=== PATIENT | male | born 1960 | race Native Hawaiian/Other Pacific Islander ===

== ENCOUNTER 2016-12-25 08:04 | Outpatient (CLI) | payer OTHER ==
[~2016-12-25 08:04] MED LIST: CLON0.5T36 PO; FLUV100T PO; GRALISE600 MG OR; LIPITOR20 MG PO; QUET200T28 PO; WARFARIN5 MG PO
== END 2016-12-25 20:05 | disposition home or self-care (01) ==
LOC: LABW 08:04
PROVIDERS: Internal Medicine
DX: D68.8 Other specified coagulation defects (principal); E78.00 Pure hypercholesterolemia, unspecified; Z79.899 Other long term (current) drug therapy; Z51.81 Encounter for therapeutic drug level monitoring
CPT/HCPCS: 36415; 80061; 80076; 82550; 85610

== ENCOUNTER 2017-02-02 09:12 | Outpatient (CLI) | payer OTHER | END 2017-02-02 10:12 | disposition home or self-care (01) | LOC: LABW 09:12 | DX: D68.8 Other specified coagulation defects (principal) | CPT/HCPCS: 36415; 85610 ==

== ENCOUNTER 2017-03-16 11:42 | Outpatient (CLI) | payer OTHER | END 2017-03-16 19:11 | disposition home or self-care (01) | LOC: LABW 11:42 | DX: D68.9 Coagulation defect, unspecified (principal) | CPT/HCPCS: 36415; 85610 ==

== ENCOUNTER 2017-04-30 10:16 | Outpatient (CLI) | payer OTHER | END 2017-04-30 11:20 | disposition home or self-care (01) | LOC: LABW 10:16 | DX: D68.8 Other specified coagulation defects (principal) | CPT/HCPCS: 36415; 85610 ==

== ENCOUNTER 2017-06-04 08:55 | Outpatient (CLI) | payer OTHER | END 2017-06-04 09:55 | disposition home or self-care (01) | LOC: LABW 08:55 | DX: D68.8 Other specified coagulation defects (principal) | CPT/HCPCS: 36415; 85610 ==

== ENCOUNTER 2017-07-26 11:45 | Outpatient (CLI) | payer OTHER | END 2017-07-26 12:45 | disposition home or self-care (01) | LOC: LABW 11:45 | DX: D68.8 Other specified coagulation defects (principal) | CPT/HCPCS: 36415; 85610 ==

== ENCOUNTER 2017-09-26 10:23 | Outpatient (CLI) | payer OTHER | END 2017-09-26 18:58 | disposition home or self-care (01) | LOC: LABW 10:23 | DX: D68.8 Other specified coagulation defects (principal) | CPT/HCPCS: 36415; 85610 ==

== ENCOUNTER 2017-10-22 08:30 | Outpatient (CLI) | payer OTHER ==
[2017-10-22 09:11] LABS: PLATELET COUNT 187 K/uL (142-355)
[2017-10-22 09:37] LABS: SODIUM 132 mmol/L (136-145)
== END 2017-10-22 09:30 | disposition home or self-care (01) ==
LOC: LABW 08:30
PROVIDERS: Internal Medicine
DX: E11.9 Type 2 diabetes mellitus without complications (principal); D68.8 Other specified coagulation defects; Z12.5 Encounter for screening for malignant neoplasm of prostate
CPT/HCPCS: 36415; 80053; 80061; 81000; 82043; 82570; 83036; 84153; 84443; 85027; 85610

== ENCOUNTER 2017-11-28 10:48 | Outpatient (CLI) | payer OTHER | END 2017-11-28 19:39 | disposition home or self-care (01) | LOC: LABW 10:48 | DX: D68.8 Other specified coagulation defects (principal) | CPT/HCPCS: 36415; 85610 ==

== ENCOUNTER 2018-01-10 10:52 | Outpatient (CLI) | payer OTHER | END 2018-01-10 23:58 | disposition home or self-care (01) | LOC: LABW 10:52 | DX: D68.8 Other specified coagulation defects (principal) | CPT/HCPCS: 36415; 85610 ==

== ENCOUNTER 2018-02-12 10:11 | Outpatient (CLI) | payer OTHER | END 2018-02-12 22:55 | disposition home or self-care (01) | LOC: LABW 10:11 | DX: D68.8 Other specified coagulation defects (principal) | CPT/HCPCS: 36415; 85610 ==

== ENCOUNTER 2018-02-17 14:15 | Emergency (ER) | payer OTHER ==
[~2018-02-17] VITALS: Ht 182.9 cm; Wt 90.7 kg
[2018-02-17 15:01] LABS: PLATELET COUNT 199 K/uL (142-355)
[2018-02-17] MEDS ORDERED: WARF5TAB6 PO (15:01)
[2018-02-17] MEDS ORDERED: NEURONTIN800 MG PO (15:01)
[2018-02-17] MEDS ORDERED: TRAM50TA PO (15:02)
[2018-02-17] MEDS ORDERED: SEROQUEL300 MG OR (15:03)
[2018-02-17] MEDS ORDERED: LEVO0.0529 PO (15:04)
[2018-02-17] MEDS ORDERED: LIPITOR40 MG PO (15:04)
[2018-02-17 15:07] LABS: POTASSIUM 3.9 mmol/L (3.6-5.2)
[2018-02-17] MEDS ORDERED: FLUV100T PO (15:10)
[2018-02-17] MEDS ORDERED: METF100038 OR (15:11)
[2018-02-17] MEDS ORDERED: LAMICTAL200 MG (15:12)
[2018-02-17 15:50] LABS: PARTIAL THROMBOPLASTIN TIME 74.8 SECONDS (24.5-33.6)
[2018-02-17 17:25] VITALS: BP 140/89; TEMP 102.8
== END 2018-02-17 17:27 | disposition short-term general hospital (02) ==
LOC: ED 14:15
DX: J18.9 Pneumonia, unspecified organism (principal); N19 Unspecified kidney failure; R00.0 Tachycardia, unspecified
CPT/HCPCS: 36600; 80053; 82550; 82805; 84484; 85027; 85379; 85610; 85730; 93005; 96372; 96374; 99284; J1650; J2060

== ENCOUNTER 2018-02-17 17:05 | Outpatient (CLI) | payer OTHER ==
[~2018-02-17 17:05] MED LIST changes: +LAMICTAL200 MG; +LEVO0.0529 PO; +LIPITOR40 MG PO; +METF100038 OR; +NEURONTIN800 MG PO; +SEROQUEL300 MG OR; +TRAM50TA PO; +WARF5TAB6 PO
== END 2018-02-17 17:26 | disposition short-term general hospital (02) ==
LOC: AMB 17:05
DX: J18.9 Pneumonia, unspecified organism (principal); N19 Unspecified kidney failure; R00.0 Tachycardia, unspecified
CPT/HCPCS: A0425; A0429

== ENCOUNTER 2018-03-15 12:37 | Outpatient (CLI) | payer OTHER ==
[2018-03-15 13:39] LABS: POTASSIUM 4.2 mmol/L (3.6-5.2)
[2018-03-15 14:00] LABS: PLATELET COUNT 299 K/uL (142-355)
== END 2018-03-15 19:17 | disposition home or self-care (01) ==
LOC: LABW 12:37
PROVIDERS: Internal Medicine
DX: D64.89 Other specified anemias (principal); I35.0 Nonrheumatic aortic (valve) stenosis; G72.89 Other specified myopathies
CPT/HCPCS: 36415; 80053; 83735; 84443; 85027; 85610

== ENCOUNTER 2018-03-22 09:36 | Outpatient (CLI) | payer OTHER ==
[2018-03-22 10:28] LABS: PLATELET COUNT 242 K/uL (142-355)
== END 2018-03-22 22:14 | disposition home or self-care (01) ==
LOC: LABW 09:36
PROVIDERS: Internal Medicine
DX: D64.89 Other specified anemias (principal)
CPT/HCPCS: 36415; 85027; 85044

== ENCOUNTER 2018-04-05 09:09 | Outpatient (CLI) | payer OTHER ==
[2018-04-05 09:26] LABS: PLATELET COUNT 232 K/uL (142-355)
== END 2018-04-05 22:36 | disposition home or self-care (01) ==
LOC: LABW 09:09
PROVIDERS: Internal Medicine
DX: I10 Essential (primary) hypertension (principal); D68.8 Other specified coagulation defects
CPT/HCPCS: 36415; 85027; 85044

== ENCOUNTER 2018-04-11 10:15 | Outpatient (CLI) | payer OTHER | END 2018-04-11 19:10 | disposition home or self-care (01) | LOC: LABW 10:15 | PROVIDERS: Internal Medicine | DX: I10 Essential (primary) hypertension (principal); D68.8 Other specified coagulation defects | CPT/HCPCS: 36415; 80061; 85610 ==

== ENCOUNTER 2018-04-24 11:56 | Outpatient (CLI) | payer OTHER ==
[2018-04-24 12:22] LABS: PLATELET COUNT 170 K/uL (142-355)
== END 2018-04-24 21:45 | disposition home or self-care (01) ==
LOC: LABW 11:56
PROVIDERS: Internal Medicine
DX: I10 Essential (primary) hypertension (principal); D68.8 Other specified coagulation defects
CPT/HCPCS: 36415; 85027; 85044; 85610

== ENCOUNTER 2018-05-17 11:13 | Outpatient (CLI) | payer OTHER ==
[2018-05-17 11:38] LABS: PLATELET COUNT 167 K/uL (142-355)
== END 2018-05-17 19:11 | disposition home or self-care (01) ==
LOC: LABW 11:13
PROVIDERS: Internal Medicine
DX: D68.8 Other specified coagulation defects (principal)
CPT/HCPCS: 36415; 85027; 85610

== ENCOUNTER 2018-06-21 11:33 | Outpatient (CLI) | payer OTHER ==
[2018-06-21 11:54] LABS: PLATELET COUNT 154 K/uL (142-355)
== END 2018-06-21 19:47 | disposition home or self-care (01) ==
LOC: LABW 11:33
PROVIDERS: Internal Medicine
DX: D68.9 Coagulation defect, unspecified (principal)
CPT/HCPCS: 36415; 85027; 85610

== ENCOUNTER 2018-07-17 12:43 | Outpatient (CLI) | payer OTHER ==
[2018-07-17 13:11] LABS: PLATELET COUNT 162 K/uL (142-355)
== END 2018-07-17 23:57 | disposition home or self-care (01) ==
LOC: LABW 12:43
PROVIDERS: Internal Medicine
DX: D68.9 Coagulation defect, unspecified (principal)
CPT/HCPCS: 36415; 85027; 85610

== ENCOUNTER 2018-08-20 12:34 | Outpatient (CLI) | payer OTHER ==
[2018-08-20 12:48] LABS: PLATELET COUNT 157 K/uL (142-355)
== END 2018-08-20 23:05 | disposition home or self-care (01) ==
LOC: LABW 12:34
PROVIDERS: Internal Medicine
DX: D68.9 Coagulation defect, unspecified (principal)
CPT/HCPCS: 36415; 85027; 85610

== ENCOUNTER 2018-09-03 12:09 | Outpatient (CLI) | payer OTHER ==
[2018-09-03 12:25] LABS: PLATELET COUNT 154 K/uL (142-355)
== END 2018-09-03 22:44 | disposition home or self-care (01) ==
LOC: LABW 12:09
PROVIDERS: Internal Medicine
DX: D68.9 Coagulation defect, unspecified (principal)
CPT/HCPCS: 36415; 85027; 85610

== ENCOUNTER 2018-09-17 11:19 | Outpatient (CLI) | payer OTHER ==
[2018-09-17 11:30] LABS: PLATELET COUNT 154 K/uL (142-355)
== END 2018-09-17 21:22 | disposition home or self-care (01) ==
LOC: LABW 11:19
PROVIDERS: Internal Medicine
DX: D68.9 Coagulation defect, unspecified (principal)
CPT/HCPCS: 36415; 85027; 85610

== ENCOUNTER 2018-10-01 12:39 | Outpatient (CLI) | payer OTHER ==
[2018-10-01 13:03] LABS: PLATELET COUNT 164 K/uL (142-355)
== END 2018-10-01 22:08 | disposition home or self-care (01) ==
LOC: LABW 12:39
PROVIDERS: Internal Medicine
DX: D68.9 Coagulation defect, unspecified (principal)
CPT/HCPCS: 36415; 85027; 85610

== ENCOUNTER 2018-10-21 10:14 | Outpatient (CLI) | payer OTHER ==
[2018-10-21 10:36] LABS: PLATELET COUNT 151 K/uL (142-355)
== END 2018-10-21 20:32 | disposition home or self-care (01) ==
LOC: LABW 10:14
PROVIDERS: Internal Medicine
DX: D68.9 Coagulation defect, unspecified (principal)
CPT/HCPCS: 36415; 85027; 85610

== ENCOUNTER 2018-11-07 12:46 | Outpatient (CLI) | payer OTHER ==
[2018-11-07 13:11] LABS: PLATELET COUNT 159 K/uL (142-355)
[2018-11-07 13:31] LABS: POTASSIUM 4.8 mmol/L (3.6-5.2)
== END 2018-11-07 21:46 | disposition home or self-care (01) ==
LOC: LABW 12:46
PROVIDERS: Internal Medicine
DX: Z00.00 Encounter for general adult medical examination without abnormal findings (principal); D68.9 Coagulation defect, unspecified; Z12.5 Encounter for screening for malignant neoplasm of prostate; E11.9 Type 2 diabetes mellitus without complications
CPT/HCPCS: 36415; 80053; 80061; 81000; 83036; 84153; 84439; 84443; 85027; 85610

== ENCOUNTER 2018-11-25 11:34 | Outpatient (CLI) | payer OTHER ==
[2018-11-25 11:48] LABS: PLATELET COUNT 162 K/uL (142-355)
== END 2018-11-25 20:26 | disposition home or self-care (01) ==
LOC: LABW 11:34
PROVIDERS: Internal Medicine
DX: D68.9 Coagulation defect, unspecified (principal)
CPT/HCPCS: 36415; 85027; 85610

== ENCOUNTER 2018-12-25 10:49 | Outpatient (CLI) | payer OTHER ==
[2018-12-25 11:51] LABS: PLATELET COUNT 199 K/uL (142-355)
== END 2018-12-25 19:18 | disposition home or self-care (01) ==
LOC: LABW 10:49
PROVIDERS: Internal Medicine
DX: D68.9 Coagulation defect, unspecified (principal)
CPT/HCPCS: 36415; 85027; 85610

== ENCOUNTER 2019-02-10 10:52 | Outpatient (CLI) | payer OTHER ==
[2019-02-10 11:10] LABS: PLATELET COUNT 158 K/uL (142-355)
== END 2019-02-10 20:31 | disposition home or self-care (01) ==
LOC: LABW 10:52
PROVIDERS: Internal Medicine
DX: D68.9 Coagulation defect, unspecified (principal)
CPT/HCPCS: 36415; 85027; 85610

== ENCOUNTER 2019-04-02 11:06 | Outpatient (CLI) | payer OTHER ==
[2019-04-02 11:36] LABS: PLATELET COUNT 161 K/uL (142-355)
== END 2019-04-02 19:12 | disposition home or self-care (01) ==
LOC: LABW 11:06
PROVIDERS: Internal Medicine
DX: D68.8 Other specified coagulation defects (principal)
CPT/HCPCS: 36415; 85027; 85610

== ENCOUNTER 2019-05-02 13:21 | Outpatient (CLI) | payer OTHER ==
[2019-05-02 13:39] LABS: PLATELET COUNT 164 K/uL (142-355)
== END 2019-05-02 19:15 | disposition home or self-care (01) ==
LOC: LABW 13:21
PROVIDERS: Internal Medicine
DX: D68.8 Other specified coagulation defects (principal)
CPT/HCPCS: 36415; 85027; 85610

== ENCOUNTER 2019-07-28 14:05 | Outpatient (CLI) | payer OTHER ==
[2019-07-28 14:22] LABS: PLATELET COUNT 145 K/uL (142-355)
== END 2019-07-28 22:41 | disposition home or self-care (01) ==
LOC: LABW 14:05
PROVIDERS: Internal Medicine
DX: D68.8 Other specified coagulation defects (principal)
CPT/HCPCS: 36415; 85027; 85610

== ENCOUNTER 2019-08-04 11:41 | Emergency (ER) | payer OTHER ==
[~2019-08-04] VITALS: Ht 182.9 cm; Wt 93.9 kg
[2019-08-04 11:45] VITALS: TEMP 98.1
[2019-08-04 12:53] VITALS: BP 128/60
== END 2019-08-04 12:53 | disposition home or self-care (01) ==
LOC: ED 11:41
DX: S09.8XXA Other specified injuries of head, initial encounter (principal); S60.512A Abrasion of left hand, initial encounter; Z79.01 Long term (current) use of anticoagulants; W01.198A Fall on same level from slipping, tripping and stumbling with subsequent striking against other object, initial encounter; Y92.094 Garage of other non-institutional residence as the place of occurrence of the external cause
CPT/HCPCS: 99283

== ENCOUNTER 2019-09-16 10:38 | Outpatient (CLI) | payer OTHER ==
[2019-09-16 11:01] LABS: PLATELET COUNT 149 K/uL (142-355)
== END 2019-09-16 20:18 | disposition home or self-care (01) ==
LOC: LABW 10:38
PROVIDERS: Internal Medicine
DX: D68.8 Other specified coagulation defects (principal)
CPT/HCPCS: 36415; 85027; 85610

== ENCOUNTER 2019-10-07 10:56 | Outpatient (CLI) | payer OTHER ==
[2019-10-07 11:12] LABS: PLATELET COUNT 162 K/uL (142-355)
[2019-10-07 11:41] LABS: POTASSIUM 4.5 mmol/L (3.6-5.2)
== END 2019-10-07 22:29 | disposition home or self-care (01) ==
LOC: LABW 10:56
PROVIDERS: Internal Medicine
DX: Z00.00 Encounter for general adult medical examination without abnormal findings (principal); D68.8 Other specified coagulation defects; E11.9 Type 2 diabetes mellitus without complications; Z12.5 Encounter for screening for malignant neoplasm of prostate; N40.0 Benign prostatic hyperplasia without lower urinary tract symptoms
CPT/HCPCS: 36415; 80053; 80061; 81000; 83036; 84153; 84439; 84443; 85027; 85610

== ENCOUNTER 2019-12-01 13:34 | Outpatient (CLI) | payer OTHER | END 2019-12-01 19:41 | disposition home or self-care (01) | LOC: LABW 13:34 | DX: D68.8 Other specified coagulation defects (principal) | CPT/HCPCS: 36415; 85610 ==

== ENCOUNTER 2020-01-20 10:25 | Outpatient (CLI) | payer OTHER | END 2020-01-20 19:30 | disposition home or self-care (01) | LOC: LABW 10:25 | DX: D68.8 Other specified coagulation defects (principal) | CPT/HCPCS: 36415; 85610 ==

== ENCOUNTER 2020-03-19 13:21 | Outpatient (CLI) | payer OTHER | END 2020-03-19 21:48 | disposition home or self-care (01) | LOC: LAB 13:21 | DX: D68.8 Other specified coagulation defects (principal) | CPT/HCPCS: 36415; 85610 ==

== ENCOUNTER 2020-06-09 15:05 | Outpatient (CLI) | payer OTHER | END 2020-06-09 19:12 | disposition home or self-care (01) | LOC: LABW 15:05 | DX: D68.8 Other specified coagulation defects (principal) | CPT/HCPCS: 36415; 85610 ==

== ENCOUNTER 2020-06-11 13:04 | Outpatient (CLI) | payer OTHER | END 2020-06-11 19:49 | disposition home or self-care (01) | LOC: LABW 13:04 | PROVIDERS: ATTEND Internal Medicine | DX: D68.8 Other specified coagulation defects (principal) | CPT/HCPCS: 36415; 85610 ==

== ENCOUNTER 2020-06-14 12:44 | Outpatient (CLI) | payer OTHER | END 2020-06-14 23:59 | disposition home or self-care (01) | LOC: LABW 12:44 | DX: D68.9 Coagulation defect, unspecified (principal) | CPT/HCPCS: 36415; 85610 ==

== ENCOUNTER 2020-06-22 14:17 | Outpatient (CLI) | payer OTHER | END 2020-06-22 23:34 | disposition home or self-care (01) | LOC: LABW 14:17 | DX: D68.8 Other specified coagulation defects (principal) | CPT/HCPCS: 36415; 85610 ==

== ENCOUNTER 2020-08-13 08:21 | Outpatient (CLI) | payer OTHER | END 2020-08-13 23:19 | disposition home or self-care (01) | LOC: LABW 08:21 | DX: D68.8 Other specified coagulation defects (principal) | CPT/HCPCS: 36415; 85610 ==

== ENCOUNTER 2020-10-08 09:31 | Outpatient (CLI) | payer OTHER ==
[2020-10-08 09:54] LABS: PLATELET COUNT 150 K/uL (142-355)
[2020-10-08 10:13] LABS: POTASSIUM 4.3 mmol/L (3.6-5.2)
== END 2020-10-08 19:28 | disposition home or self-care (01) ==
LOC: LABW 09:31
PROVIDERS: ATTEND Internal Medicine
DX: Z00.00 Encounter for general adult medical examination without abnormal findings (principal); Z12.5 Encounter for screening for malignant neoplasm of prostate; D68.8 Other specified coagulation defects; R73.9 Hyperglycemia, unspecified; Z79.899 Other long term (current) drug therapy; N40.0 Benign prostatic hyperplasia without lower urinary tract symptoms
CPT/HCPCS: 36415; 80053; 80061; 81000; 83036; 84153; 84443; 85027; 85610

== ENCOUNTER 2020-11-10 11:14 | Outpatient (CLI) | payer OTHER | END 2020-11-10 19:56 | disposition home or self-care (01) | LOC: LABW 11:14 | PROVIDERS: ATTEND Internal Medicine | DX: D68.8 Other specified coagulation defects (principal) | CPT/HCPCS: 36415; 85610 ==

== ENCOUNTER 2021-02-02 11:09 | Outpatient (CLI) | payer OTHER | END 2021-02-02 22:12 | disposition home or self-care (01) | LOC: LABW 11:09 | PROVIDERS: ATTEND Internal Medicine | DX: D68.8 Other specified coagulation defects (principal) | CPT/HCPCS: 36415; 85610 ==

== ENCOUNTER 2021-03-28 09:04 | Outpatient (CLI) | payer OTHER | END 2021-03-28 21:26 | disposition home or self-care (01) | LOC: LABW 09:04 | PROVIDERS: ATTEND Internal Medicine | DX: D68.8 Other specified coagulation defects (principal) | CPT/HCPCS: 36415; 85610 ==

== ENCOUNTER 2021-06-14 14:21 | Outpatient (CLI) | payer OTHER | END 2021-06-14 20:40 | disposition home or self-care (01) | LOC: LABW 14:21 | PROVIDERS: ATTEND Internal Medicine | DX: D68.8 Other specified coagulation defects (principal) | CPT/HCPCS: 36415; 85610 ==

== ENCOUNTER → 2021-08-03 | Outpatient (CLI) | payer OTHER | LOC: LABW 10:31 | PROVIDERS: ATTEND Internal Medicine | DX: D68.8 Other specified coagulation defects (principal) | CPT/HCPCS: 36415; 85610 ==

== ENCOUNTER 2021-09-02 12:51 | Outpatient (CLI) | payer OTHER | END 2021-09-02 19:57 | disposition home or self-care (01) | LOC: LABW 12:51 | PROVIDERS: ATTEND Internal Medicine | DX: D68.8 Other specified coagulation defects (principal) | CPT/HCPCS: 36415; 85610 ==

== ENCOUNTER 2021-09-23 09:54 | Outpatient (CLI) | payer OTHER | END 2021-09-23 19:35 | disposition home or self-care (01) | LOC: CT 09:54 | PROVIDERS: ATTEND Internal Medicine | DX: J32.9 Chronic sinusitis, unspecified (principal) ==

== ENCOUNTER 2021-10-12 10:32 | Outpatient (CLI) | payer OTHER ==
[2021-10-12 10:54] LABS: PLATELET COUNT 158 K/uL (142-355)
[2021-10-12 11:24] LABS: POTASSIUM 4.1 mmol/L (3.6-5.2)
== END 2021-10-12 20:17 | disposition home or self-care (01) ==
LOC: LABW 10:32
PROVIDERS: ATTEND Internal Medicine
DX: Z00.00 Encounter for general adult medical examination without abnormal findings (principal); Z12.5 Encounter for screening for malignant neoplasm of prostate; D68.8 Other specified coagulation defects; Z79.899 Other long term (current) drug therapy
CPT/HCPCS: 36415; 80053; 80061; 81000; 84153; 84439; 84443; 85027; 85610

== ENCOUNTER 2022-01-23 11:01 | Outpatient (CLI) | payer OTHER | END 2022-01-23 19:35 | disposition home or self-care (01) | LOC: LABW 11:01 | PROVIDERS: ATTEND Internal Medicine | DX: D68.8 Other specified coagulation defects (principal) | CPT/HCPCS: 36415; 85610 ==

== ENCOUNTER 2022-01-27 11:51 | Outpatient (CLI) | payer OTHER | END 2022-01-27 21:46 | disposition home or self-care (01) | LOC: LABW 11:51 | PROVIDERS: ATTEND Internal Medicine | DX: D68.8 Other specified coagulation defects (principal) | CPT/HCPCS: 36415; 85610 ==

== ENCOUNTER 2022-02-01 10:06 | Outpatient (CLI) | payer OTHER | END 2022-02-01 19:01 | disposition home or self-care (01) | LOC: LABW 10:06 | PROVIDERS: ATTEND Internal Medicine | DX: D68.8 Other specified coagulation defects (principal) | CPT/HCPCS: 36415; 85610 ==

== ENCOUNTER 2022-02-28 11:15 | Outpatient (CLI) | payer OTHER | END 2022-02-28 19:43 | disposition home or self-care (01) | LOC: LABW 11:15 | PROVIDERS: ATTEND Internal Medicine | DX: D68.8 Other specified coagulation defects (principal) | CPT/HCPCS: 36415; 85610 ==

== ENCOUNTER 2022-04-07 10:12 | Outpatient (CLI) | payer OTHER | END 2022-04-07 18:56 | disposition home or self-care (01) | LOC: LABW 10:12 | PROVIDERS: ATTEND Internal Medicine | DX: D68.8 Other specified coagulation defects (principal) | CPT/HCPCS: 36415; 85610 ==

== ENCOUNTER 2022-04-10 13:46 | Outpatient (CLI) | payer OTHER | END 2022-04-10 19:01 | disposition home or self-care (01) | LOC: LABW 13:46 | PROVIDERS: ATTEND Internal Medicine | DX: D68.8 Other specified coagulation defects (principal) | CPT/HCPCS: 36415; 85610 ==

== ENCOUNTER 2022-06-19 13:41 | Outpatient (CLI) | payer OTHER | END 2022-06-19 19:02 | disposition home or self-care (01) | LOC: LABW 13:41 | PROVIDERS: ATTEND Internal Medicine | DX: D68.8 Other specified coagulation defects (principal) | CPT/HCPCS: 36415; 85610 ==

== ENCOUNTER 2022-06-26 13:35 | Outpatient (CLI) | payer OTHER ==
[2022-06-26 14:09] LABS: PLATELET COUNT 194 K/uL (142-355)
[2022-06-26 14:57] LABS: POTASSIUM 4.5 mmol/L (3.6-5.2); SODIUM 137 mmol/L (136-145)
== END 2022-06-26 19:01 | disposition home or self-care (01) ==
LOC: LABW 13:35
PROVIDERS: ATTEND Internal Medicine
DX: E11.9 Type 2 diabetes mellitus without complications (principal); I10 Essential (primary) hypertension; Z12.5 Encounter for screening for malignant neoplasm of prostate; E03.8 Other specified hypothyroidism; N40.0 Benign prostatic hyperplasia without lower urinary tract symptoms
CPT/HCPCS: 36415; 80053; 80061; 81002; 81015; 82043; 83036; 84153; 84439; 84443; 85027

== ENCOUNTER 2022-10-20 13:45 | Outpatient (CLI) | payer OTHER | END 2022-10-20 19:22 | disposition home or self-care (01) | LOC: LABW 13:45 | PROVIDERS: ATTEND Internal Medicine | DX: D68.8 Other specified coagulation defects (principal); I26.99 Other pulmonary embolism without acute cor pulmonale; Z95.2 Presence of prosthetic heart valve | CPT/HCPCS: 85610 ==

== ENCOUNTER 2022-11-16 10:37 | Outpatient (CLI) | payer OTHER ==
[2022-11-16 11:06] LABS: POTASSIUM 4.4 mmol/L (3.6-5.2)
== END 2022-11-16 18:51 | disposition home or self-care (01) ==
LOC: LABW 10:37
PROVIDERS: ATTEND Internal Medicine
DX: E11.9 Type 2 diabetes mellitus without complications (principal); D68.8 Other specified coagulation defects; I26.99 Other pulmonary embolism without acute cor pulmonale; Z95.2 Presence of prosthetic heart valve
CPT/HCPCS: 36415; 80053; 80061; 83036; 85610

== ENCOUNTER 2023-01-09 14:02 | Outpatient (CLI) | payer OTHER | END 2023-01-09 22:05 | disposition home or self-care (01) | LOC: LABW 14:02 | PROVIDERS: ATTEND Internal Medicine | DX: D68.8 Other specified coagulation defects (principal); I26.99 Other pulmonary embolism without acute cor pulmonale; Z95.2 Presence of prosthetic heart valve | CPT/HCPCS: 36415; 85610 ==

== ENCOUNTER 2023-01-12 16:41 | Emergency (ER) | payer OTHER ==
[~2023-01-12] VITALS: Ht 182.9 cm; Wt 113.4 kg
[2023-01-12 16:48] VITALS: BP 118/74; TEMP 99.7
== END 2023-01-12 18:05 | disposition home or self-care (01) ==
LOC: ED 16:41
DX: M79.605 Pain in left leg (principal)
CPT/HCPCS: 99282

== ENCOUNTER 2023-02-02 12:09 | Outpatient (CLI) | payer OTHER ==
[2023-02-02 14:00] LABS: POTASSIUM 4.2 mmol/L (3.6-5.2)
== END 2023-02-02 19:17 | disposition home or self-care (01) ==
LOC: LABW 12:09
PROVIDERS: ATTEND Internal Medicine
DX: D68.8 Other specified coagulation defects (principal); I26.99 Other pulmonary embolism without acute cor pulmonale; Z95.2 Presence of prosthetic heart valve; E11.9 Type 2 diabetes mellitus without complications; I10 Essential (primary) hypertension; M25.562 Pain in left knee
CPT/HCPCS: 36415; 80053; 80061; 85610

== ENCOUNTER 2023-04-11 15:30 | Outpatient (CLI) | payer OTHER | END 2023-04-11 19:11 | disposition home or self-care (01) | LOC: LAB 15:30 | PROVIDERS: ATTEND Internal Medicine | DX: D68.8 Other specified coagulation defects (principal); E78.00 Pure hypercholesterolemia, unspecified | CPT/HCPCS: 80061; 85610 ==

== ENCOUNTER 2023-08-24 13:39 | Outpatient (CLI) | payer OTHER ==
[2023-08-24 14:08] LABS: PLATELET COUNT 163 K/uL (142-355)
[2023-08-24 14:26] LABS: POTASSIUM 4.3 mmol/L (3.6-5.2)
== END 2023-08-24 19:03 | disposition home or self-care (01) ==
LOC: LABW 13:39
PROVIDERS: ATTEND Internal Medicine
DX: E11.9 Type 2 diabetes mellitus without complications (principal); E03.8 Other specified hypothyroidism; Z86.711 Personal history of pulmonary embolism
CPT/HCPCS: 36415; 80053; 80061; 81002; 83036; 84439; 84443; 85027; 85610